=== PATIENT | female | born 1975 | race Two or more races ===

== ENCOUNTER → 2016-08-20 10:31 | Outpatient (CLI) | payer SELFPAY | END | disposition home or self-care (01) | LOC: D.US 10:31 | DX: E04.1 Nontoxic single thyroid nodule (principal) ==

== ENCOUNTER → 2017-07-27 16:00 | Outpatient (CLI) | payer MEDICAID | END | disposition home or self-care (01) | LOC: D.MAMMO 13:00 | DX: Z12.31 Encounter for screening mammogram for malignant neoplasm of breast (principal) ==